=== PATIENT | male | born 1965 | race Caucasian/White ===

== ENCOUNTER 2020-06-23 22:27 | Inpatient (IN) | payer MEDICARE, SELFPAY ==
[~2020-06-23] VITALS: Ht 177.8 cm; Wt 132.9 kg
[~2020-06-23 22:27] MED LIST: ALPRAZOLAM0.5 MG PO; ASPIRIN81 MG PO; BACTRIM DS TAB1 EACH PO; CIPRO500 MG PO; COLCHICINE0.6 M1 PO; FLAGYL500 MG PO; GABAPENTIN300 MG PO; HORIZANT600 MG PO; HYDRALAZINE HCL25 MG PO; INDOCIN25 MG/5 ML PO; LISINOPRIL40 MG PO; LISINOPRIL5 MG PO; LORTAB 5-325 M1 EACH PO; MOBIC15 MG PO; MONOPRIL TAB 1010 MG PO; NEURONTIN 400400 MG PO; NORCO 10-325 T1 EACH PO; NORVASC 5 MG TAB5 MG PO; PERCOCET 5/325 T1 EA PO; PROTONIX40 MG PO; Voltaren Gel 1 % TOP; ZANTAC300 MG PO; ZOFRAN ODT 4 MG4 MG PO; ZYLOPRIM 100 M100 MG PO
[2020-06-23 23:23] LABS: HEMOGLOBIN 16.2 gm/dl (14.0-17.5); RED BLOOD COUNT 5.35 M/UL (4.20-5.50); WHITE BLOOD COUNT 16.3 K/UL (4.5-11.0)
[2020-06-24] MEDS ORDERED: ZYLOPRIM 100 M100 MG PO (03:26)
[2020-06-24] MEDS ORDERED: ZESTRIL 40 MG T40 MG PO (03:27)
[2020-06-24] MEDS ORDERED: PRILOSEC OTC20 MG PO (11:01)
[2020-06-24] MEDS ORDERED: ALPRAZOLAM0.5 MG PO (11:03)
[2020-06-24] MEDS ORDERED: PERCOCET 5-3251 EACH PO (11:04)
[2020-06-24 11:15] LABS: HEMOGLOBIN 15.3 gm/dl (14.0-17.5); RED BLOOD COUNT 4.99 M/UL (4.20-5.50)
[2020-06-25 05:14] LABS: RED BLOOD COUNT 4.62 M/UL (4.20-5.50)
[2020-06-25 05:20] LABS: WHITE BLOOD COUNT 7.1 K/UL (4.5-11.0)
[2020-06-26 05:09] LABS: HEMOGLOBIN 13.6 gm/dl (14.0-17.5); RED BLOOD COUNT 4.51 M/UL (4.20-5.50); WHITE BLOOD COUNT 5.7 K/UL (4.5-11.0)
[2020-06-26 05:24] LABS: BUN/CREATININE RATIO 16 (0-10)
[2020-06-26] MEDS ORDERED: ZOFRAN ODT 4 MG4 MG PO (09:34)
[2020-06-26] MEDS ORDERED: BENTYL 20MG TAB20 MG PO (09:34)
[2020-06-26] MEDS ORDERED: FLAGYL500 MG PO (09:34)
[2020-06-26] MEDS ORDERED: CIPRO500 MG PO (09:34)
== END 2020-06-26 12:30 | disposition home or self-care (01) | DRG 392 ==
LOC: ER1 22:27 → CDU 06-24 01:06 → MED SURG 4 06-24 01:06
PROVIDERS: Family Medicine; Internal Medicine; ADMIT Internal Medicine
DX: A09 Infectious gastroenteritis and colitis, unspecified (principal); N17.9 Acute kidney failure, unspecified; Z68.41 Body mass index [BMI] 40.0-44.9, adult; Z20.822 Contact with and (suspected) exposure to COVID-19; E86.0 Dehydration; R79.89 Other specified abnormal findings of blood chemistry; I10 Essential (primary) hypertension; G89.4 Chronic pain syndrome; F41.9 Anxiety disorder, unspecified; F15.10 Other stimulant abuse, uncomplicated; K21.9 Gastro-esophageal reflux disease without esophagitis; M10.9 Gout, unspecified; E66.01 Morbid (severe) obesity due to excess calories; D72.829 Elevated white blood cell count, unspecified; Z79.82 Long term (current) use of aspirin; Z86.14 Personal history of Methicillin resistant Staphylococcus aureus infection; Z91.19 Patient's noncompliance with other medical treatment and regimen; Z89.611 Acquired absence of right leg above knee; Z79.891 Long term (current) use of opiate analgesic; Z79.899 Other long term (current) drug therapy; Z96.653 Presence of artificial knee joint, bilateral
CPT/HCPCS: 36415; 71045; 80048; 80053; 80307; 81001; 82272; 82550; 82553; 84484; 85025; 85610; 86850; 86900; 86901; 96365; 96368; 96375; 99285; C9113; J1170; J1956; J2405; J3480; J7030; J7040; Q9967; U0002

== ENCOUNTER 2020-11-20 20:06 | Emergency (ER) | payer MEDICARE ==
[~2020-11-20 20:06] MED LIST changes: +BENTYL 20MG TAB20 MG PO; +PERCOCET 5-3251 EACH PO; +PRILOSEC OTC20 MG PO; +ZESTRIL 40 MG T40 MG PO
[2020-11-20 20:50] LABS: HEMOGLOBIN 14.6 gm/dl (14.0-17.5); RED BLOOD COUNT 4.69 M/UL (4.20-5.50)
[2020-11-20 20:56] LABS: BUN/CREATININE RATIO 13 (0-10)
== END 2020-11-20 22:15 | disposition home or self-care (01) ==
LOC: ER1 20:06
PROVIDERS: Family Medicine
DX: K62.5 Hemorrhage of anus and rectum (principal); I10 Essential (primary) hypertension; I12.9 Hypertensive chronic kidney disease with stage 1 through stage 4 chronic kidney disease, or unspecified chronic kidney disease; N18.9 Chronic kidney disease, unspecified
CPT/HCPCS: 71045; 73030; 80053; 82272; 82550; 82553; 83690; 83874; 84484; 85025; 85610; 93005; 96374; 99284; J1885

== ENCOUNTER 2021-02-06 09:14 | Inpatient (IN) | payer MEDICARE, OTHER ==
[~2021-02-06] VITALS: Ht 177.8 cm; Wt 135.2 kg
[2021-02-06 11:13] LABS: HEMOGLOBIN 15.8 gm/dl (14.0-17.5); RED BLOOD COUNT 5.09 M/UL (4.20-5.50); WHITE BLOOD COUNT 13.1 K/UL (4.5-11.0)
[2021-02-06] MEDS ORDERED: LISINOPRIL20 MG PO (21:48)
[2021-02-06] MEDS ORDERED: ROBAXIN 750 MG750 MG PO (21:49)
[2021-02-07 08:44] LABS: HEMOGLOBIN 14.7 gm/dl (14.0-17.5); RED BLOOD COUNT 4.76 M/UL (4.20-5.50)
[2021-02-07 08:52] LABS: WHITE BLOOD COUNT 6.9 K/UL (4.5-11.0)
[2021-02-08 07:53] LABS: HEMOGLOBIN 13.4 gm/dl (14.0-17.5); RED BLOOD COUNT 4.61 M/UL (4.20-5.50)
[2021-02-08 14:23] LABS: BUN/CREATININE RATIO 21 (0-10)
[2021-02-09 06:52] LABS: RED BLOOD COUNT 4.33 M/UL (4.20-5.50); WHITE BLOOD COUNT 4.7 K/UL (4.5-11.0)
[2021-02-09 07:12] LABS: BUN/CREATININE RATIO 16 (0-10)
[2021-02-09 08:15] LABS: HBSAG SCREEN Negative (Negative); HEP A AB, IGM Negative (Negative); HEP B CORE AB, IGM Negative (Negative); HEP C VIRUS AB <0.1 (0.0-0.9)
[2021-02-09] MEDS ORDERED: FLOMAX 0.4 MG0.4 MG PO ×2 (10:06→10:24)
[2021-02-09] MEDS ORDERED: HORIZANT600 MG PO (10:06)
[2021-02-09] MEDS ORDERED: ZOFRAN 4 MG TAB4 MG PO (10:18)
== END 2021-02-09 16:28 | disposition home or self-care (01) | DRG 683 ==
LOC: ER1 09:14 → MED SURG 4 15:46 → CDU 15:46 → MED SURG 4 21:06
PROVIDERS: Internal Medicine Nephrology; Physician Assistant; ADMIT Internal Medicine
DX: N17.9 Acute kidney failure, unspecified (principal); E87.1 Hypo-osmolality and hyponatremia; M62.82 Rhabdomyolysis; F11.20 Opioid dependence, uncomplicated; Z20.822 Contact with and (suspected) exposure to COVID-19; G89.4 Chronic pain syndrome; I10 Essential (primary) hypertension; F41.9 Anxiety disorder, unspecified; M10.9 Gout, unspecified; E66.01 Morbid (severe) obesity due to excess calories; K21.9 Gastro-esophageal reflux disease without esophagitis; Z96.652 Presence of left artificial knee joint; F19.10 Other psychoactive substance abuse, uncomplicated; Z96.611 Presence of right artificial shoulder joint; E86.0 Dehydration; M60.9 Myositis, unspecified; E87.5 Hyperkalemia; Z68.35 Body mass index [BMI] 35.0-35.9, adult; X30.XXXA Exposure to excessive natural heat, initial encounter; Z80.0 Family history of malignant neoplasm of digestive organs; Z86.14 Personal history of Methicillin resistant Staphylococcus aureus infection; Z89.611 Acquired absence of right leg above knee; Z80.1 Family history of malignant neoplasm of trachea, bronchus and lung; Z83.3 Family history of diabetes mellitus
CPT/HCPCS: 36415; 51702; 71045; 80048; 80053; 80074; 80307; 81001; 82550; 82553; 82570; 83874; 84156; 84484; 85025; 85027; 93005; 94664; 94760; 96374; 96375; 96376; 99285; J1644; J2270; J2405; J7030; U0002; U0003

== ENCOUNTER 2021-03-24 09:02 | Emergency (ER) | payer MEDICARE, OTHER ==
[~2021-03-24 09:02] MED LIST changes: +FLOMAX 0.4 MG0.4 MG PO; +LISINOPRIL20 MG PO; +ROBAXIN 750 MG750 MG PO; +ZOFRAN 4 MG TAB4 MG PO
== END 2021-03-24 11:08 | disposition home or self-care (01) ==
LOC: ER1 09:02
DX: S63.501A Unspecified sprain of right wrist, initial encounter (principal); I10 Essential (primary) hypertension; W19.XXXA Unspecified fall, initial encounter; Y92.009 Unspecified place in unspecified non-institutional (private) residence as the place of occurrence of the external cause
CPT/HCPCS: 73110; 99283

== ENCOUNTER 2021-04-30 13:31 | Inpatient (IN) | payer MEDICARE ==
[~2021-04-30] VITALS: Ht 177.8 cm; Wt 127.0 kg
[2021-04-30 14:01] LABS: HEMOGLOBIN 13.5 gm/dl (14.0-17.5); RED BLOOD COUNT 4.73 M/UL (4.20-5.50); WHITE BLOOD COUNT 7.8 K/UL (4.5-11.0)
[2021-04-30 14:24] LABS: BUN/CREATININE RATIO 16 (0-10)
[2021-04-30] MEDS ORDERED: GABAPENTIN300 MG PO (17:12)
[2021-04-30] MEDS ORDERED: ARTHRITIS PAIN100 GM TOP (17:12)
[2021-04-30] MEDS ORDERED: PRAZOSIN HCL2 MG PO (17:13)
[2021-04-30] MEDS ORDERED: MOBIC15 MG PO (17:13)
[2021-04-30] MEDS ORDERED: HYDROCODON-ACE1 EAC4 PO (17:13)
[2021-04-30] MEDS ORDERED: LISINOPRIL20 MG PO (17:13)
[2021-04-30] MEDS ORDERED: ESOMEPRAZOLE MA20 MG PO (17:14)
[2021-04-30] MEDS ORDERED: ASPIRIN EC81 MG PO (17:14)
--- NOTE | 2021-04-30 20:56 | NUR ---
DIRECTOR BUSINESS MANAGEMENT ATTEMPTED TO DO PATIENT ADMISSION TO HOSPITAL AND PT REFUSED TO ANSWER ANY QUESTIONS AT THIS TIME AND DEMANDS TO HAVE "PAIN PILL AND SLEEPING PILL." PRIMARY RN MADE AWARE OF PT DEMANDS AND ADMISSION SITUATION.
[2021-05-01 06:35] LABS: HEMOGLOBIN 12.9 gm/dl (14.0-17.5); RED BLOOD COUNT 4.34 M/UL (4.20-5.50); WHITE BLOOD COUNT 6.5 K/UL (4.5-11.0)
[2021-05-01 07:14] LABS: BUN/CREATININE RATIO 15 (0-10)
[2021-05-02 06:35] LABS: HEMOGLOBIN 13.7 gm/dl (14.0-17.5); RED BLOOD COUNT 4.71 M/UL (4.20-5.50)
[2021-05-02 06:38] LABS: WHITE BLOOD COUNT 4.3 K/UL (4.5-11.0)
[2021-05-02 07:04] LABS: BUN/CREATININE RATIO 32 (0-10)
[2021-05-03 06:17] LABS: HEMOGLOBIN 13.7 gm/dl (14.0-17.5); RED BLOOD COUNT 4.64 M/UL (4.20-5.50)
[2021-05-03 06:19] LABS: WHITE BLOOD COUNT 8.8 K/UL (4.5-11.0)
[2021-05-03 06:41] LABS: BUN/CREATININE RATIO 34 (0-10)
--- NOTE | 2021-05-03 08:25 | NUR ---
PATIENT HAS VERBALIZED WANTING TO GO HOME AMA FOR TWO DAYS BUT NURSING, RESPIRATORY, AND PHYSICIAN EXPLAINED RISK VS BENIFITS TO PATIENT INCLUDING POSSIBLE . PATIENT AGREED TO STAY "1-2 MORE DAYS". PATIENT HAS BEEN UNABLE TO MAINTAIN O2 SATS ABOVE 90 ON RA. PATIENT WAS ON AIRVO 100% 60L WITH O2 SAT 90'S. COVID +. PATIENT'S PHYSICIAN, NURSES, AND RESPIRATORY THERAPIST HAS EXPLAINED RISK VS BENIFITS INCLUDING POSSIBLE IF PATIENT LEAVES AMA WITH OUT HOME OXYGEN SINCE HE IS ON THE HIGHEST SETTINGS OF AIRVO PLUS THE RISK OF SPREADING COVID. PATIENT HAD DECIDED TO STAY YESTERDAY, ONCE AGAIN VERBAZLING HE WILL GIVE IT 1-2 MORE DAYS ONLY THEN HE IS LEAVING. PER ENTRY LEVEL SOFTWARE ENGINEER PATIENT BEGAN ONCE AGAIN VERBALIZING WANTS TO LEAVE AMA BUT STAFF WAS ABLE TO GET HIM TO AGREE TO STAY. AT APPROX 8AM THIS MORNGING PATIENT STATED HE WAS LEAVING AMA TO TECH. PATIENT HAS A HEALED RIGHT AKA. HE SCOOTED HIMSELF FROM BED TO A STATIONARY CHAIR IN THE ROOM, SCOOTED THE CHAIR OUT TO THE HALLWAY AND YELLED AT NURSE THAT HE WAS LEAVING AMA, GET HIS PAPERS READY. CHARGE NURSE AND PRIMARY NURSE EXPLAINED RISK VS BENIFITS TO PATIENT INCLUDING POSSIBLE . PATIENT IS A&O X4, VERBALIZED UNDERSTANDING, AND STATED HE WAS STILL LEAVNING, HIS RIDE WAS OUTSIDE WAITING ON HIM. FLOOR NURSE SUPERVISOR TOWER NOTIFIED OF SITUATION. STAFF PROVIDED PATIENT A WHEELCHAIR, PLACED A MASK ON PATIENT, AND SAFELY WHEELED HIM DOWN AND HELPED HIM GET INTO THE CAR.
== END 2021-05-03 08:25 | disposition left against medical advice (07) | DRG 177 ==
LOC: ER1 13:31 → CDU 16:01 → MED SURG 4 18:30
PROVIDERS: Nurse Practitioner; ADMIT Internal Medicine
PROC: 5A0945A Assistance with Respiratory Ventilation, 24-96 Consecutive Hours, High Flow/Velocity Cannula (ICD-10-PCS; principal; 2021-04-30)
PROC: XW033E5 Introduction of Remdesivir Anti-infective into Peripheral Vein, Percutaneous Approach, New Technology Group 5 (ICD-10-PCS; 2021-04-30)
PROC: 3E0333Z Introduction of Anti-inflammatory into Peripheral Vein, Percutaneous Approach (ICD-10-PCS; 2021-04-30)
PROC: 8E0ZXY6 Isolation (ICD-10-PCS; 2021-05-01)
PROC: XW033H5 Introduction of Tocilizumab into Peripheral Vein, Percutaneous Approach, New Technology Group 5 (ICD-10-PCS; 2021-05-01)
DX: U07.1 COVID-19 (principal); J12.82 Pneumonia due to coronavirus disease 2019; J96.01 Acute respiratory failure with hypoxia; J15.9 Unspecified bacterial pneumonia; I10 Essential (primary) hypertension; G89.4 Chronic pain syndrome; Z23 Encounter for immunization; K21.9 Gastro-esophageal reflux disease without esophagitis; F41.9 Anxiety disorder, unspecified; Z89.611 Acquired absence of right leg above knee; Z83.3 Family history of diabetes mellitus; Z80.0 Family history of malignant neoplasm of digestive organs; Z80.1 Family history of malignant neoplasm of trachea, bronchus and lung; Z86.14 Personal history of Methicillin resistant Staphylococcus aureus infection; Z98.890 Other specified postprocedural states
CPT/HCPCS: 36415; 36600; 71045; 80048; 80053; 80307; 81001; 82533; 82550; 82553; 82728; 82803; 83036; 83735; 83874; 83880; 84439; 84443; 84484; 85025; 85379; 85610; 86140; 93005; 94640; 94660; 94664; 94760; 96374; 99285; J1100; J1650; J1885; J1956; J3486; J7030; Q0249; Q9967; U0002

== ENCOUNTER → 2021-08-31 | Outpatient (CLI) | payer MEDICARE ==
[~2021-08-31] MED LIST changes: +ARTHRITIS PAIN100 GM TOP; +ASPIRIN EC81 MG PO; +ESOMEPRAZOLE MA20 MG PO; +HYDROCODON-ACE1 EAC4 PO; +PRAZOSIN HCL2 MG PO
== END ==
LOC: RAD 10:06
DX: L03.115 Cellulitis of right lower limb (principal)
CPT/HCPCS: 73552